=== PATIENT | female | born 1965 | race Hispanic/Latino ===

== ENCOUNTER 2017-05-15 17:58 | Emergency (ER) | payer SELFPAY ==
[~2017-05-15 17:58] MED LIST: ALBU8.5H3 IH; CITA-106 PO; CULTURELLE CAP1 EACH PO; LEVO500T2 PO; RANI300T4 PO
[2017-05-15] MEDS ORDERED: KETOROLAC TROMETHAMINE 60 MG/2 ML VIAL ONE (19:13)
== END 2017-05-15 20:19 | disposition home or self-care (01) ==
LOC: EDH 17:58
DX: S43.491A Other sprain of right shoulder joint, initial encounter (principal); S53.491A Other sprain of right elbow, initial encounter; Z98.890 Other specified postprocedural states; Z72.0 Tobacco use; W10.8XXA Fall (on) (from) other stairs and steps, initial encounter; Y93.89 Activity, other specified; Y92.89 Other specified places as the place of occurrence of the external cause; Y99.8 Other external cause status
CPT/HCPCS: 73030; 73080; 96372; 99284; J1885

== ENCOUNTER 2021-12-16 21:09 | Emergency (ER) | payer OTHER ==
[~2021-12-16] VITALS: Ht 152.4 cm; Wt 94.3 kg
[2021-12-16 21:12] VITALS: BP 151/69
[2021-12-16] MEDS ORDERED: IBUP-1493 PO (22:22)
[2021-12-16] MEDS ORDERED: CYCL10TA16 PO (22:22)
== END 2021-12-16 22:43 | disposition home or self-care (01) ==
LOC: EDH 21:09
DX: M54.12 Radiculopathy, cervical region (principal); Z79.899 Other long term (current) drug therapy; Z90.49 Acquired absence of other specified parts of digestive tract; Z98.890 Other specified postprocedural states

== ENCOUNTER 2021-12-28 16:16 | Emergency (ER) | payer OTHER ==
[~2021-12-28] VITALS: Ht 152.4 cm; Wt 90.7 kg
[~2021-12-28 16:16] MED LIST changes: +CYCL10TA16 PO; +IBUP-1493 PO
[2021-12-28] MEDS ORDERED: VALA10002 PO (19:48)
[2021-12-28 19:56] VITALS: BP 138/64
== END 2021-12-28 20:04 | disposition home or self-care (01) ==
LOC: EDH 16:16
DX: B02.9 Zoster without complications (principal); Z79.1 Long term (current) use of non-steroidal anti-inflammatories (NSAID); Z90.49 Acquired absence of other specified parts of digestive tract

== ENCOUNTER 2022-08-07 21:22 | Emergency (ER) | payer OTHER ==
[~2022-08-07] VITALS: Ht 149.9 cm; Wt 81.6 kg
[~2022-08-07 21:22] MED LIST changes: +VALA10002 PO
[2022-08-07 21:33] VITALS: BP 161/87
[2022-08-07] MEDS ORDERED: AMOX/CLAV 875/125MG TAB PO ONE (22:00)
[2022-08-07] MEDS ORDERED: AMOX1TAB16 PO (22:59)
== END 2022-08-07 23:06 | disposition home or self-care (01) ==
LOC: EDH 21:22
DX: S81.852A Open bite, left lower leg, initial encounter (principal); Z90.49 Acquired absence of other specified parts of digestive tract; Z98.890 Other specified postprocedural states; Z79.899 Other long term (current) drug therapy; W54.0XXA Bitten by dog, initial encounter; Y93.89 Activity, other specified; Y92.89 Other specified places as the place of occurrence of the external cause; Y99.8 Other external cause status

== ENCOUNTER 2022-08-10 14:37 | Inpatient (IN) | payer OTHER ==
[~2022-08-10] VITALS: Ht 152.4 cm; Wt 98.4 kg
[~2022-08-10 14:37] MED LIST changes: +AMOX1TAB16 PO
[2022-08-10] MEDS ORDERED: UNASYN 3GM VIAL IV STA (16:07)
[2022-08-10] MEDS ORDERED: 0.9%NACL 1000ML 1,000 ML IV ONE (16:30)
[2022-08-10 16:32] LABS: BASOPHILS % (AUTO) 0.7 % (0.0-5.0); EOSINOPHILS % (AUTO) 2.1 % (0.0-8.0); HEMATOCRIT 44.2 % (36-48); LYMPHOCYTES % (AUTO) 29.8 % (21.0-51.0); MEAN CORPUSCULAR HEMOGLOBIN 30.2 pg (27.0-33.0); MEAN CORPUSCULAR HGB CONC 32.4 g/dL (32.0-36.0); MEAN CORPUSCULAR VOLUME 93.4 fL (79-99); MONOCYTES % (AUTO) 7.8 % (3.0-13.0); NEUTROPHILS % (AUTO) 58.5 % (40.0-77.0); PLATELET COUNT (AUTO) 230 K/uL (130-400); RED BLOOD CELL COUNT(AUTO) 4.73 MIL/uL (4.00-5.50); RED CELL DISTRIBUTION WIDTH 13.6 % (11.0-15.5); WHITE BLOOD COUNT (AUTO) 11.2 K/uL (4.8-10.8)
[2022-08-10 16:46] LABS: CREATININE 0.8 mg/dL (0.5-1.5); POTASSIUM 4.1 mmol/L (3.5-5.1)
[2022-08-10 16:54] LABS: ALBUMIN 3.5 g/dL (3.5-5.0); TOTAL PROTEIN, SERUM 7.5 g/dL (6.0-8.3)
[2022-08-10] MEDS ORDERED: POTASSIUM CHLORIDE 20MEQ/100ML 100 ML IV PRN (17:30)
[2022-08-10] MEDS ORDERED: ACETAMINOPHEN 325 MG TAB PO PRN (17:30)
[2022-08-10] MEDS ORDERED: NITROGLYCERIN 0.4 MG SL TAB SL PRN (17:30)
[2022-08-10] MEDS ORDERED: KCL 20 MEQ ERTAB PO PRN (17:30)
[2022-08-10] MEDS ORDERED: ONDANSETRON 4MG INJ IV PRN (17:30)
[2022-08-10] MEDS ORDERED: MAG/ALUM/SIMETH 30 ML UDCUP PO PRN (17:30)
[2022-08-10] MEDS ORDERED: HYDROCODONE/ACETAMINOPHEN 5/325 MG TAB PO PRN (17:30)
[2022-08-10] MEDS ORDERED: GUAIFENESIN-DM 200/20 MG 10 ML PO PRN (17:30)
[2022-08-10] MEDS ORDERED: VANCOMYCIN PROTOCOL PER PHARMACY IV SCH (17:30)
[2022-08-10] MEDS ORDERED: DiphenhydrAMINE HCL 50 MG/ML VIAL IV PRN (17:30)
[2022-08-10] MEDS ORDERED: POTASSIUM CHLORIDE 10% ELIXIR 20 MEQ/15 ML UDCUP PO PRN (17:30)
[2022-08-10] MEDS ORDERED: LACTULOSE 20 GM/30 ML UDCUP PO PRN (17:30)
[2022-08-10] MEDS ORDERED: AMP/SULBAC 3GM+NS 100ML 100 ML IV ONE (17:44)
[2022-08-10 18:09] LABS: APPEARANCE,URINE CLOUDY (CLEAR); BILIRUBIN,URINE NEGATIVE (NEGATIVE); COLOR,URINE LIGHT-YELLOW (YELLOW); GLUCOSE, URINE (UA) NEGATIVE (NEGATIVE); KETONES,URINE NEGATIVE (NEGATIVE); LEUKOCYTE ESTERASE ,URINE 500 Leu/uL (NEGATIVE); NITRATE,URINE NEGATIVE (NEGATIVE); OCCULT BLOOD,URINE MODERATE (NEGATIVE); PROTEIN,URINE 10 mg/dL (NEGATIVE); UROBILINOGEN,URINE 0.2 mg/dL (0.2-1.0)
[2022-08-10 18:12] LABS: BACTERIA,URINE FEW /HPF (None Seen); MUCUS,URINE RARE LPF (None Seen); RBC,URINE 51-100 /HPF (0-1); SQUAMOUS EPITHELIAL CELL,UR MOD /HPF (0-2); WBC,URINE 26-50 /HPF (0-1)
[2022-08-10] MEDS: HYDROMORPHONE 0.5 MG SYG (0.5MG/0.5ML) IV PRN (18:20)
[2022-08-10] MEDS: CEFEPIME HCL 2 GM VIAL IVPB SCH (19:23)
[2022-08-10] MEDS: LACTATED RINGERS 1000ML 1,000 ML IV SCH (19:23)
[2022-08-10 20:58] VITALS: BP 143/69
[2022-08-10] MEDS ORDERED: FAMOTIDINE 20MG VIAL IV SCH (21:00)
[2022-08-10] MEDS: HYDROCODONE/ACETAMINOPHEN 5/325 MG TAB PO PRN (21:12)
[2022-08-10] MEDS: FAMOTIDINE 20MG TAB PO SCH (21:12)
[2022-08-10] MEDS: VANCOMYCIN 1G/250ML KIT 250 ML IV SCH (21:12)
[2022-08-10 23:32] VITALS: BP 121/66
[2022-08-11] MEDS: LACTATED RINGERS 1000ML 1,000 ML IV SCH ×3 (00:50→18:55)
[2022-08-11] MEDS: HYDROMORPHONE 0.5 MG SYG (0.5MG/0.5ML) IV PRN ×3 (01:48→23:31)
[2022-08-11 04:11] VITALS: BP 128/62
[2022-08-11] MEDS: CEFEPIME HCL 2 GM VIAL IVPB SCH ×2 (04:46→18:21)
[2022-08-11 06:00] LABS: BASOPHILS % (AUTO) 0.7 % (0.0-5.0); EOSINOPHILS % (AUTO) 1.9 % (0.0-8.0); HEMATOCRIT 39.3 % (36-48); LYMPHOCYTES % (AUTO) 33.9 % (21.0-51.0); MEAN CORPUSCULAR HGB CONC 31.6 g/dL (32.0-36.0); MEAN CORPUSCULAR VOLUME 95.2 fL (79-99); MONOCYTES % (AUTO) 8.6 % (3.0-13.0); NEUTROPHILS % (AUTO) 53.5 % (40.0-77.0); PLATELET COUNT (AUTO) 190 K/uL (130-400); RED BLOOD CELL COUNT(AUTO) 4.13 MIL/uL (4.00-5.50); RED CELL DISTRIBUTION WIDTH 13.9 % (11.0-15.5); WHITE BLOOD COUNT (AUTO) 10.7 K/uL (4.8-10.8)
[2022-08-11 06:05] LABS: INR 0.93 (0.85-1.15); PROTHROMBIN TIME 9.7 SEC (9.6-11.6)
[2022-08-11 06:06] LABS: PARTIAL THROMBOPLASTIN TIME 25.1 SEC (26.3-35.5)
[2022-08-11 06:27] LABS: CREATININE 0.8 mg/dL (0.5-1.5); MAGNESIUM 1.6 mg/dL (1.80-2.40); PHOSPHORUS 4.1 mg/dL (2.5-4.9); POTASSIUM 4.3 mmol/L (3.5-5.1); THYROID STIMULATING HORMONE 8.25 uIU/mL (0.36-3.74)
[2022-08-11 06:40] LABS: HEMOGLOBIN A1C 5.7 % (4.0-6.0)
[2022-08-11] MEDS: MAGNESIUM 2GM PREMIX 50ML 50 ML IV PRN (06:44)
[2022-08-11] MEDS: HYDROCODONE/ACETAMINOPHEN 5/325 MG TAB PO PRN ×3 (06:47→20:10)
[2022-08-11 07:34] LABS: % IRON SATURATION 22.3 % (22-44)
[2022-08-11 08:13] VITALS: BP 128/71
[2022-08-11] MEDS: VANCOMYCIN 1G/250ML KIT 250 ML IV SCH ×2 (08:38→20:10)
[2022-08-11] MEDS: FAMOTIDINE 20MG TAB PO SCH ×2 (08:38→20:09)
[2022-08-11] MEDS: ENOXAPARIN SODIUM 40 MG/0.4 ML SYRINGE SQ SCH (08:39)
[2022-08-11 11:52] VITALS: BP 123/72
[2022-08-11 17:33] VITALS: BP 147/72
[2022-08-11 20:00] VITALS: BP 150/77
[2022-08-12] VITALS (7 sets, daily range): BP systolic 131–187; BP diastolic 69–92
[2022-08-12] MEDS: LACTATED RINGERS 1000ML 1,000 ML IV SCH (02:50)
[2022-08-12] MEDS: CEFEPIME HCL 2 GM VIAL IVPB SCH ×2 (05:28→18:01)
[2022-08-12] MEDS: LEVOTHYROXINE 50 MCG TABLET PO SCH (05:28)
[2022-08-12] MEDS: HYDROCODONE/ACETAMINOPHEN 5/325 MG TAB PO PRN ×2 (05:29→11:18)
[2022-08-12 08:50] LABS: BASOPHILS % (AUTO) 0.6 % (0.0-5.0); EOSINOPHILS % (AUTO) 2.1 % (0.0-8.0); HEMATOCRIT 39.6 % (36-48); LYMPHOCYTES % (AUTO) 27.4 % (21.0-51.0); MEAN CORPUSCULAR HEMOGLOBIN 30.2 pg (27.0-33.0); MEAN CORPUSCULAR HGB CONC 32.1 g/dL (32.0-36.0); MEAN CORPUSCULAR VOLUME 94.1 fL (79-99); MONOCYTES % (AUTO) 7.5 % (3.0-13.0); NEUTROPHILS % (AUTO) 61.1 % (40.0-77.0); PLATELET COUNT (AUTO) 171 K/uL (130-400); RED BLOOD CELL COUNT(AUTO) 4.21 MIL/uL (4.00-5.50); RED CELL DISTRIBUTION WIDTH 13.8 % (11.0-15.5); WHITE BLOOD COUNT (AUTO) 9.7 K/uL (4.8-10.8)
[2022-08-12] MEDS ORDERED: LISINOPRIL 20 MG TABLET PO SCH (09:00)
[2022-08-12] MEDS: ENOXAPARIN SODIUM 40 MG/0.4 ML SYRINGE SQ SCH (09:04)
[2022-08-12] MEDS: FAMOTIDINE 20MG TAB PO SCH ×2 (09:04→20:44)
[2022-08-12 09:27] LABS: CREATININE 0.7 mg/dL (0.5-1.5); POTASSIUM 4.1 mmol/L (3.5-5.1)
[2022-08-12] MEDS ORDERED: VANCOMYCIN 1.5 GM/250 ML BAG 250 ML IV ONE (11:00)
[2022-08-12] MEDS ORDERED: HYDRALAZINE 20MG/ML VIAL IV PRN (12:00)
[2022-08-12] MEDS: HYDROMORPHONE 0.5 MG SYG (0.5MG/0.5ML) IV PRN (20:39)
[2022-08-12] MEDS: VANCOMYCIN 1G/250ML KIT 250 ML IV SCH (20:40)
[2022-08-13] MEDS: HYDROMORPHONE 0.5 MG SYG (0.5MG/0.5ML) IV PRN ×2 (01:11→06:00)
[2022-08-13] MEDS: CEFEPIME HCL 2 GM VIAL IVPB SCH (04:19)
[2022-08-13 04:30] VITALS: BP 144/77
[2022-08-13] MEDS: LEVOTHYROXINE 50 MCG TABLET PO SCH (05:59)
[2022-08-13 06:01] LABS: BASOPHILS % (AUTO) 0.7 % (0.0-5.0); EOSINOPHILS % (AUTO) 1.8 % (0.0-8.0); HEMATOCRIT 39.4 % (36-48); LYMPHOCYTES % (AUTO) 28.5 % (21.0-51.0); MEAN CORPUSCULAR HEMOGLOBIN 30.3 pg (27.0-33.0); MEAN CORPUSCULAR VOLUME 94.7 fL (79-99); MONOCYTES % (AUTO) 10.6 % (3.0-13.0); NEUTROPHILS % (AUTO) 57.3 % (40.0-77.0); PLATELET COUNT (AUTO) 198 K/uL (130-400); RED BLOOD CELL COUNT(AUTO) 4.16 MIL/uL (4.00-5.50); RED CELL DISTRIBUTION WIDTH 13.6 % (11.0-15.5); WHITE BLOOD COUNT (AUTO) 10.3 K/uL (4.8-10.8)
[2022-08-13 06:12] LABS: CREATININE 0.8 mg/dL (0.5-1.5); POTASSIUM 4.5 mmol/L (3.5-5.1)
[2022-08-13 08:00] VITALS: BP 141/62
[2022-08-13] MEDS: VANCOMYCIN 1G/250ML KIT 250 ML IV SCH (09:11)
[2022-08-13] MEDS: AMLODIPINE 5 MG TAB PO SCH (09:13)
[2022-08-13] MEDS: LISINOPRIL 20 MG TABLET PO SCH (09:13)
[2022-08-13] MEDS: ENOXAPARIN SODIUM 40 MG/0.4 ML SYRINGE SQ SCH (09:14)
[2022-08-13] MEDS: FAMOTIDINE 20MG TAB PO SCH ×2 (09:14→20:52)
[2022-08-13] MEDS: HYDROCODONE/ACETAMINOPHEN 5/325 MG TAB PO PRN ×3 (09:23→20:56)
[2022-08-13 12:00] VITALS: BP 126/74
[2022-08-13 16:00] VITALS: BP 157/65
[2022-08-13] MEDS ORDERED: LEVOFLOXACIN 750 MG/D5W 150ML BAG IVPB SCH (16:30)
[2022-08-13] MEDS: LEVOFLOXACIN 750 MG/D5W 150 ML 150 ML IV SCH (17:27)
[2022-08-13 19:45] VITALS: BP 125/61
[2022-08-13 23:00] VITALS: BP 137/98
[2022-08-14] MEDS: HYDROCODONE/ACETAMINOPHEN 5/325 MG TAB PO PRN (01:52)
[2022-08-14 03:50] VITALS: BP 134/65
[2022-08-14] MEDS: LEVOTHYROXINE 50 MCG TABLET PO SCH (07:57)
[2022-08-14 08:00] VITALS: BP 132/55
[2022-08-14] MEDS: FAMOTIDINE 20MG TAB PO SCH ×2 (08:43→20:17)
[2022-08-14] MEDS: AMLODIPINE 5 MG TAB PO SCH (08:44)
[2022-08-14] MEDS: LISINOPRIL 20 MG TABLET PO SCH (08:44)
[2022-08-14] MEDS: ENOXAPARIN SODIUM 40 MG/0.4 ML SYRINGE SQ SCH (08:45)
[2022-08-14] MEDS: ACETAMINOPHEN 325 MG TAB PO PRN ×3 (08:50→20:24)
[2022-08-14 12:00] VITALS: BP 113/76
[2022-08-14 16:00] VITALS: BP 154/85
[2022-08-14] MEDS: LEVOFLOXACIN 750 MG/D5W 150 ML 150 ML IV SCH (17:02)
[2022-08-14] MEDS: NICOTINE 7 MG/ 24 HR PATCH TD SCH (17:13)
[2022-08-14 20:00] VITALS: BP 120/64
[2022-08-15] VITALS: BP 118/67
[2022-08-15 04:00] VITALS: BP 126/69
[2022-08-15] MEDS: LEVOTHYROXINE 50 MCG TABLET PO SCH (06:09)
[2022-08-15 08:00] VITALS: BP 144/50
[2022-08-15] MEDS: ENOXAPARIN SODIUM 40 MG/0.4 ML SYRINGE SQ SCH (09:10)
[2022-08-15] MEDS: FAMOTIDINE 20MG TAB PO SCH ×2 (09:10→19:42)
[2022-08-15] MEDS: LISINOPRIL 20 MG TABLET PO SCH (09:10)
[2022-08-15] MEDS: NICOTINE 7 MG/ 24 HR PATCH TD SCH (09:11)
[2022-08-15] MEDS: AMLODIPINE 5 MG TAB PO SCH (09:11)
[2022-08-15 12:00] VITALS: BP 131/73
[2022-08-15 16:00] VITALS: BP 103/56
[2022-08-15] MEDS: LEVOFLOXACIN 750 MG/D5W 150 ML 150 ML IV SCH (16:36)
[2022-08-15] MEDS: ACETAMINOPHEN 325 MG TAB PO PRN ×2 (18:51→23:14)
[2022-08-15 20:00] VITALS: BP 142/76
[2022-08-15] MEDS: DIPHENHYDRAMINE HCL 25 MG CAPSULE PO PRN (23:08)
[2022-08-16] VITALS: BP 108/69
[2022-08-16 04:00] VITALS: BP 112/65
[2022-08-16 05:27] LABS: BASOPHILS % (AUTO) 0.8 % (0.0-5.0); EOSINOPHILS % (AUTO) 2.7 % (0.0-8.0); HEMATOCRIT 40.2 % (36-48); LYMPHOCYTES % (AUTO) 33.4 % (21.0-51.0); MEAN CORPUSCULAR HGB CONC 32.1 g/dL (32.0-36.0); MEAN CORPUSCULAR VOLUME 93.5 fL (79-99); MONOCYTES % (AUTO) 9.9 % (3.0-13.0); NEUTROPHILS % (AUTO) 51.2 % (40.0-77.0); PLATELET COUNT (AUTO) 212 K/uL (130-400); RED CELL DISTRIBUTION WIDTH 13.8 % (11.0-15.5); WHITE BLOOD COUNT (AUTO) 8.9 K/uL (4.8-10.8)
[2022-08-16 05:42] LABS: CREATININE 0.8 mg/dL (0.5-1.5); MAGNESIUM 1.7 mg/dL (1.80-2.40); PHOSPHORUS 4.1 mg/dL (2.5-4.9); POTASSIUM 3.9 mmol/L (3.5-5.1)
[2022-08-16] MEDS: LEVOTHYROXINE 50 MCG TABLET PO SCH (06:27)
[2022-08-16] MEDS: MAGNESIUM 2GM PREMIX 50ML 50 ML IV PRN (06:28)
[2022-08-16 08:00] VITALS: BP 135/70
[2022-08-16] MEDS: FAMOTIDINE 20MG TAB PO SCH ×2 (08:02→19:50)
[2022-08-16] MEDS: ENOXAPARIN SODIUM 40 MG/0.4 ML SYRINGE SQ SCH (08:03)
[2022-08-16] MEDS: LISINOPRIL 20 MG TABLET PO SCH (08:03)
[2022-08-16] MEDS: AMLODIPINE 5 MG TAB PO SCH (08:03)
[2022-08-16] MEDS: NICOTINE 7 MG/ 24 HR PATCH TD SCH (08:11)
[2022-08-16] MEDS: ACETAMINOPHEN 325 MG TAB PO PRN (08:11)
[2022-08-16 12:00] VITALS: BP 116/62
[2022-08-16 16:00] VITALS: BP 128/68
[2022-08-16] MEDS: LEVOFLOXACIN 750 MG/D5W 150 ML 150 ML IV SCH (16:30)
[2022-08-16] MEDS: DIPHENHYDRAMINE HCL 25 MG CAPSULE PO PRN (16:30)
[2022-08-16 20:00] VITALS: BP 120/75
[2022-08-17] VITALS (7 sets, daily range): BP systolic 116–153; BP diastolic 57–80
[2022-08-17 05:17] LABS: BASOPHILS % (AUTO) 1.2 % (0.0-5.0); EOSINOPHILS % (AUTO) 2.7 % (0.0-8.0); HEMATOCRIT 42.4 % (36-48); LYMPHOCYTES % (AUTO) 33.7 % (21.0-51.0); MEAN CORPUSCULAR HGB CONC 32.1 g/dL (32.0-36.0); MEAN CORPUSCULAR VOLUME 93.4 fL (79-99); MONOCYTES % (AUTO) 11.4 % (3.0-13.0); NEUTROPHILS % (AUTO) 48.8 % (40.0-77.0); PLATELET COUNT (AUTO) 229 K/uL (130-400); RED BLOOD CELL COUNT(AUTO) 4.54 MIL/uL (4.00-5.50); RED CELL DISTRIBUTION WIDTH 13.8 % (11.0-15.5); WHITE BLOOD COUNT (AUTO) 9.1 K/uL (4.8-10.8)
[2022-08-17 05:21] LABS: CREATININE 0.8 mg/dL (0.5-1.5)
[2022-08-17] MEDS: LEVOTHYROXINE 50 MCG TABLET PO SCH (05:59)
[2022-08-17] MEDS: FAMOTIDINE 20MG TAB PO SCH ×2 (08:23→20:59)
[2022-08-17] MEDS: LISINOPRIL 20 MG TABLET PO SCH (08:23)
[2022-08-17] MEDS: AMLODIPINE 5 MG TAB PO SCH (08:23)
[2022-08-17] MEDS: ENOXAPARIN SODIUM 40 MG/0.4 ML SYRINGE SQ SCH (08:24)
[2022-08-17] MEDS: DIPHENHYDRAMINE HCL 25 MG CAPSULE PO PRN ×2 (11:53→21:08)
[2022-08-17] MEDS: ACETAMINOPHEN 325 MG TAB PO PRN ×2 (11:54→21:09)
[2022-08-17] MEDS: NICOTINE 7 MG/ 24 HR PATCH TD SCH (13:16)
[2022-08-17] MEDS: LEVOFLOXACIN 750 MG/D5W 150 ML 150 ML IV SCH (16:24)
[2022-08-18 04:17] VITALS: BP 124/58
[2022-08-18] MEDS: LEVOTHYROXINE 50 MCG TABLET PO SCH (05:17)
[2022-08-18 05:28] LABS: BASOPHILS % (AUTO) 0.8 % (0.0-5.0); EOSINOPHILS % (AUTO) 2.6 % (0.0-8.0); HEMATOCRIT 41.9 % (36-48); LYMPHOCYTES % (AUTO) 33.6 % (21.0-51.0); MEAN CORPUSCULAR HEMOGLOBIN 29.9 pg (27.0-33.0); MEAN CORPUSCULAR HGB CONC 32.2 g/dL (32.0-36.0); MEAN CORPUSCULAR VOLUME 92.7 fL (79-99); MONOCYTES % (AUTO) 11.1 % (3.0-13.0); NEUTROPHILS % (AUTO) 49.8 % (40.0-77.0); PLATELET COUNT (AUTO) 213 K/uL (130-400); RED BLOOD CELL COUNT(AUTO) 4.52 MIL/uL (4.00-5.50); RED CELL DISTRIBUTION WIDTH 13.7 % (11.0-15.5); WHITE BLOOD COUNT (AUTO) 9.6 K/uL (4.8-10.8)
[2022-08-18 05:43] LABS: CREATININE 0.7 mg/dL (0.5-1.5); POTASSIUM 4.2 mmol/L (3.5-5.1)
[2022-08-18] MEDS: AMLODIPINE 5 MG TAB PO SCH (08:15)
[2022-08-18] MEDS: LISINOPRIL 20 MG TABLET PO SCH (08:15)
[2022-08-18] MEDS: FAMOTIDINE 20MG TAB PO SCH (08:15)
[2022-08-18] MEDS: ENOXAPARIN SODIUM 40 MG/0.4 ML SYRINGE SQ SCH (08:16)
[2022-08-18 08:17] VITALS: BP 142/67
[2022-08-18] MEDS: NICOTINE 7 MG/ 24 HR PATCH TD SCH (09:44)
[2022-08-18] MEDS ORDERED: LEVO750T39 PO (11:56)
[2022-08-18 12:00] VITALS: BP 111/69
[2022-08-18 16:00] VITALS: BP 136/54
== END 2022-08-18 19:05 | disposition home or self-care (01) | DRG 603 ==
LOC: EDH 14:37 → EDHIP 14:38 → 3BH 20:42
PROVIDERS: ADMIT Internal Medicine; ATTEND Internal Medicine
DX: L03.116 Cellulitis of left lower limb (principal); Z68.41 Body mass index [BMI] 40.0-44.9, adult; L03.115 Cellulitis of right lower limb; E66.01 Morbid (severe) obesity due to excess calories; E03.9 Hypothyroidism, unspecified; F17.210 Nicotine dependence, cigarettes, uncomplicated; W54.0XXA Bitten by dog, initial encounter; Y93.89 Activity, other specified; Y92.89 Other specified places as the place of occurrence of the external cause; Y99.8 Other external cause status
CPT/HCPCS: 36415; 71045; 73700; 76882; 80048; 80053; 80202; 81001; 83036; 83540; 83550; 83605; 83735; 84100; 84439; 84443; 85025; 85610; 85730; 87040; 87070; 87076; 87077; 87088; 87186; A6248; G0378; J0295; J0692; J1170; J1650; J1956; J2405; J3370; J3475; J7030; Q0163